=== PATIENT | male | born 1995 | race Caucasian/White ===

== ENCOUNTER → 2019-08-06 09:33 | Outpatient (CLI) | payer OTHER, SELFPAY | PROVIDERS: Visit Provider Physician Assistant | DX: L08.9 Local infection of the skin and subcutaneous tissue, unspecified (principal) | CPT/HCPCS: 87070; 87077; 87147; 87186; 87205 ==

== ENCOUNTER 2019-08-20 16:57 | Emergency (ER) | payer OTHER, SELFPAY ==
[2019-08-20 17:15] VITALS: BP 110/69; PULSE 53; RESP 15; TEMP 36.4; O2SAT 100; BMI 19.8
--- NOTE | 2019-08-20 19:32 | PC.NURSE ---
reports being seen in walking clinic today abnd started on abx. Pt noticed tacho area spreading and came into ER. denies all other complaints.
[2019-08-20 19:34] VITALS: BP 108/81; PULSE 58; RESP 15; O2SAT 100
--- NOTE | 2019-08-20 22:23 | ED.SKABFB ---
HPI - Skin/Abscess/Foreign Bdy <CLEVELAND Goodwin - Last Filed: 08/20/19 23:12> General Chief complaint: Skin/Abscess/Foreign Body Stated complaint: infection right arm, increased pain after antibiot Time Seen by Provider: 08/20/19 18:57 Source: patient Mode of arrival: Ambulatory Limitations: no limitations History of Present Illness HPI narrative: This is 24-year-old gentleman, smoker, who presents with significant other with chief complain of right upper arm pain, swelling, redness. Patient reports headache, low energy but denies fever/chills, nausea or vomiting. Patient reports it started as a small pimple and he tried to pop this and had small amount of drainage. Patient reports pain was severe on the way to ER and felt like he was going to pass out. Patient was seen at [facility] today and prescribed with doxycycline for cellulitis and had a 1st dose prior coming into ED at 11:00 a.m. patient reports he was concerned since the redness, swelling, pain has increased within several hours. Patient had recently treated with doxycycline for MRSA infection on right upper arm 08/06/2019. Patient reports after the initial course of antibiotic medication, the right upper arm infection had improved. The patient also reports had bitten by his dog the other day and there are 2 superficial puncture wound which do not appears to be having redness, swelling, warmth, or drainage immediately inferior to today's cellulitis site which is lined with skin marker. Patient denies history of immunosuppressed, diabetes, or IV drug use. Related Data Previous Rx's Medication Instructions Recorded doxycycline monohydrate 100 mg 100 mg PO BID 7 Days #14 cap 08/20/19 capsule mupirocin 2 % topical ointment 1 applic TOP TID #30 gram 08/20/19 Allergies Allergy/AdvReac Type Severity Reaction Status Date / Time Sulfa (Sulfonamide Allergy Mild Unverified 08/20/19 08:20 Antibiotics) [SULFA (SULFONAMIDE ANTIBIOTICS)] codeine [CODEINE] Allergy Unknown Unverified 08/20/19 08:20 Review of Systems <CLEVELAND Goodwin - Last Filed: 08/20/19 23:12> Review of Systems ROS Unobtainable: All systems reviewed & are unremarkable except as noted in HPI and below PFSH <CLEVELAND Goodwin - Last Filed: 08/20/19 23:12> Social History Smoking Status: Current every day smoker Social History Smoking Status: Current every day smoker Exam <CLEVELAND Goodwin - Last Filed: 08/20/19 23:12> Narrative Exam Narrative: General appearance: well developed, well nourished, in no acute distress. Head: normocephalic, atraumatic, no scalp lesions, non-tender. Eye: pupil equal, round. EOMI. Nose: nares patent. Oral: mucosa moist. Neck/Thyroid: neck supple, full range of motion, no visible masses. Skin: Right upper arm with mild erythema, indurated edema without soft spot to palpate, warmth and reports tender to palpate and noticed open punctures sites. no suspicious rashes, lesions over other visible areas. Warm and dry. Heart: no clubbing, no cyanosis, no edema. Lungs: Breathing even and unlabored. No stridor. No accessory muscles used. Chest: normal shape and expansion. Abdomen: non-obese, non-distended. Neurologic: alert and oriented. 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 Psych: good eye contact, normal affect. Initial Vital Signs Initial Vital Signs: Vital Signs Temperature 97.6 F 08/20/19 17:15 Pulse Rate 53 L 08/20/19 17:15 Respiratory Rate 15 08/20/19 17:15 Blood Pressure 110/69 08/20/19 17:15 Pulse Oximetry 100 08/20/19 17:15 <Anatoly Cervantes DO - Last Filed: 08/20/19 23:26> Initial Vital Signs Initial Vital Signs: Vital Signs Temperature 97.6 F 08/20/19 17:15 Pulse Rate 53 L 08/20/19 17:15 Respiratory Rate 15 08/20/19 17:15 Blood Pressure 110/69 08/20/19 17:15 Pulse Oximetry 100 08/20/19 17:15 Course <CLEVELAND Goodwin - Last Filed: 08/20/19 23:12> Vital Signs Vital signs: Vital Signs - 8 hr 08/20/19 17:15 08/20/19 19:34 Temperature 97.6 F Pulse Rate 53 L 58 L Respiratory Rate 15 15 Blood Pressure 110/69 108/81 Pulse Oximetry 100 100 <Anatoly Cervantes DO - Last Filed: 08/20/19 23:26> Vital Signs Vital signs: Vital Signs - 8 hr 08/20/19 17:15 08/20/19 19:34 Temperature 97.6 F Pulse Rate 53 L 58 L Respiratory Rate 15 15 Blood Pressure 110/69 108/81 Pulse Oximetry 100 100 MDM - Skin/Abscess/Foreign Bdy <CLEVELAND Goodwin - Last Filed: 08/20/19 23:12> Differential Diagnosis Differential diagnosis: Likely abscess of skin or subcutaneous tissue and cellulitis Medical Records Attestation: I reviewed the patient's medical records. [facility] Narrative Medical decision making narrative: This is 24-year-old male who presents to ED with right upper arm cellulitis. The area has induration, mild warmth and redness without discharge. Patient is afebrile with normal blood pressure and no tachycardia. Patient only had taken 1 dose of doxycycline at 11:00 a.m. today after visiting walk-in clinic and also discharged to home with mupirocin ointment. The site has been drawn with skin marker and advised to use warm pack frequently on affected site to promote healing and take medication twice a day for 7 day course as prescribed and limit right arm use. Return precautions were discussed with the patient and advised return to ED if worsening redness, swelling, fever, chills, pain, feeling fainting after a couple of additional dose of doxycycline. Patient advised to use [id number] Tylenol and/or Motrin as needed for discomfort and mild fever. Patient verbalized the understanding and no further questions expressed at this time and agrees with treatment plan. Patient does not have PCP and information to [facility] resources and walk-in clinic provided. Discharge Plan Departure Patient Disposition: Home Clinical Impression: MRSA cellulitis Discharge Date/Time: 08/20/19 19:35 Instructions: DI for Cellulitis -- Child Activity Restrictions/Additional Instructions: You have been diagnosed with [cellulitis on right upper arm possibly MRSA infection]. What to do: *Take your medications as directed. Please continue take doxycycline for next 10 days. Use mupirocin antibiotic medication ointment on affected site 3 times a day as instructed. Use warm pack on affected site to promote healing. You can also take [id number] Tylenol and/or Motrin as needed for fever and pain. *Follow up with your primary care provider/Walk in clinic in 2-3 days, call for an appointment. Let them know you were seen in the ED and that we asked you to be seen in follow up. *Return to ED if you have any new, worsening, or concerning symptoms, such as [worsening pain, increasing redness beyond marked line after 2-3 doses of antibiotic medication, fever, tingling numbness to right arm, joint pain, chest pain, breathing difficulty, unable to tolerate fluids or medications, fainting, any acute concerns]. Prescriptions: No Action doxycycline monohydrate 100 mg capsule 100 mg PO BID 7 Days Qty: 14 RF: 0 mupirocin 2 % ointment 1 applic TOP TID Qty: 30 RF: 0 Referrals: [facility] [Outside] ([id number] ) [facility] [Outside] <Anatoly Cervantes, - Last Filed: 08/20/19 23:26> Sign Out Provider Sign Out Attestation: I was available for consultation during this patient's emergency department encounter
== END 2019-08-20 19:35 | disposition home or self-care (01) ==
PROVIDERS: Emergency Provider Nurse Practitioner Family
DX: L03.113 Cellulitis of right upper limb (principal); A49.02 Methicillin resistant Staphylococcus aureus infection, unspecified site
CPT/HCPCS: 99282

== ENCOUNTER 2019-11-24 18:48 | Emergency (ER) | payer OTHER, SELFPAY ==
[2019-11-24 18:53] VITALS: BP 145/79; PULSE 70; RESP 18; TEMP 36.9; O2SAT 98
[2019-11-24] MEDS: TET,DIPH,PERTUSS(ACELL),VAC/PF 0.5 ML SYRINGE IM (18:58)
--- NOTE | 2019-11-24 19:02 | ED.WOUNDLAC ---
HPI - Wound/Laceration <BEE Lagos - Last Filed: 11/24/19 20:13> General Chief Complaint: Wound/Laceration Stated Complaint: laceration to left hand thumb last night Time Seen by Provider: 11/24/19 18:49 Source: patient Mode of arrival: Ambulatory Limitations: no limitations History of Present Illness HPI narrative: The patient is a 24-year-old male current smoker with history of abdominal pain and abscess who presents with a chief complaint of laceration to his left hand thumb. He states that this happened yesterday. It was with a knife while he was intoxicated. He denies any decreased range of motion. He has not cleaned out he does not know when his last tetanus was. Related Data Previous Rx's Medication Instructions Recorded mupirocin 2 % topical ointment 1 applic TOP TID #30 gram 08/20/19 Allergies Allergy/AdvReac Type Severity Reaction Status Date / Time Sulfa (Sulfonamide Allergy Mild Verified 08/21/19 15:04 Antibiotics) [SULFA (SULFONAMIDE ANTIBIOTICS)] codeine [CODEINE] Allergy Unknown Verified 08/21/19 15:04 Review of Systems <JENN Lagos - Last Filed: 11/24/19 20:13> Review of Systems Narrative: GENERAL: Denies chills, fatigue, malaise, fever, sweats. HEENT: Denies sinus pain, ear pain, sore throat, difficulty swallowing, dizziness. RESPIRATORY: Denies dyspnea, cough, wheezing, hemoptysis, sputum. CARDIOVASCULAR: Denies chest pain, palpitations, orthopnea, edema, GASTROINTESTINAL: Denies nausea, vomiting, abdominal pain, diarrhea, constipation, melena. : Denies dysuria, frequency, incontinence, hematuria, urinary retention. MUSCULOSKELETAL: denies weakness, joint pain, or bony pain SKIN: See HPI NEUROLOGIC: Denies weakness, headache, numbness, change in speech, confusion, seizures, incoordination. PSYCHIATRIC: No concerning psychosocial issues. 12 point review of systems is negative except for those stated above Patient History <JENN Lagos - Last Filed: 11/24/19 20:13> Social History Smoking Status: Current every day smoker Smoking Status: Current every day smoker alcohol intake frequency: 3 or more drinks per day Substance Use Type: marijuana Exam <BEE Lagos - Last Filed: 11/24/19 20:13> Narrative Exam Narrative: GENERAL: This is a well-nourished, well-developed patient, in mild distress. HEAD: Atraumatic. Normocephalic. No temporal or scalp tenderness. EYES: Pupils equal round and reactive. Extraocular motions intact. No scleral icterus. No injection or drainage. ENT: Nose without bleeding, purulent drainage or septal hematoma. Throat without erythema, tonsillar hypertrophy or exudate. Uvula midline. Airway patent. NECK: Trachea midline. No JVD or lymphadenopathy. Supple, nontender, no meningeal signs. CARDIOVASCULAR: Regular rate and rhythm RESPIRATORY: No cough. No increased respiratory effort. No accessory muscle use. EXTREMITIES: Skin exam is noted. Able to flex and extend left thumb against resistance. BACK: Nontender without deformity or crepitance. No flank tenderness. NEURO: AOx3. SKIN: 2.5 cm linear laceration noted distal phalanx of left 1st digit on palmar side. No obvious muscle or tendon involvement. Through dermis. Macerated tissue. No erythema or drainage noted. Initial Vital Signs Initial Vital Signs: Vital Signs Temperature 98.5 F 11/24/19 18:53 Pulse Rate 70 11/24/19 18:53 Respiratory Rate 18 11/24/19 18:53 Blood Pressure 145/79 H 11/24/19 18:53 Pulse Oximetry 98 11/24/19 18:53 <Otilio Cornejo DO - Last Filed: 11/24/19 23:39> Initial Vital Signs Initial Vital Signs: Vital Signs Temperature 98.5 F 11/24/19 18:53 Pulse Rate 70 11/24/19 18:53 Respiratory Rate 18 11/24/19 18:53 Blood Pressure 145/79 H 11/24/19 18:53 Pulse Oximetry 98 11/24/19 18:53 Course <BEE Lagos - Last Filed: 11/24/19 20:13> Orders Ordered: Discontinued Medications Diphtheria/Tetanus/Acell Pertussis (Adacel) 0.5 ml IM .ONCE ONE Stop: 11/24/19 18:55 Last Admin: 11/24/19 18:58 Dose: 0.5 ml Documented by: RUBIA Vital Signs Vital signs: Vital Signs - 8 hr 11/24/19 18:53 11/24/19 19:50 Temperature 98.5 F Pulse Rate 70 72 Respiratory Rate 18 16 Blood Pressure 145/79 H Pulse Oximetry 98 98 <Otilio Cornejo DO - Last Filed: 11/24/19 23:39> Orders Ordered: Discontinued Medications Diphtheria/Tetanus/Acell Pertussis (Adacel) 0.5 ml IM .ONCE ONE Stop: 11/24/19 18:55 Last Admin: 11/24/19 18:58 Dose: 0.5 ml Documented by: RUBIA Vital Signs Vital signs: Vital Signs - 8 hr 11/24/19 18:53 11/24/19 19:50 Temperature 98.5 F Pulse Rate 70 72 Respiratory Rate 18 16 Blood Pressure 145/79 H Pulse Oximetry 98 98 MDM - Wound/Laceration <JENN LagosBC - Last Filed: 11/24/19 20:13> MDM Narrative Medical decision making narrative: The patient is a 24-year-old male who presents with a chief complaint of a laceration to his left thumb. His wound is too old to close by suturing. Was cleansed in the emergency department with Hibiclens. His tetanus was updated. Wound care was provided by nursing. Discussed at length monitoring for signs and symptoms of infection such as redness swelling and pus. Discussed at length follow up care and encouraged follow-up with primary care provider. Discussed coming back to ER for acute concerns. Patient has no questions or concerns upon discharge and states understanding of return precautions as well as follow-up care. Discharge Plan Departure Patient Disposition: Home Clinical Impression: Laceration Discharge Date/Time: 11/24/19 19:58 Instructions: DI for Minor Laceration Activity Restrictions/Additional Instructions: Today we updated your tetanus Unfortunately your wound is too old to suture. Please do not use knives while intoxicated. Please watch for signs and symptoms of infection such as Redness swelling and pus. I've given you contact information at [facility] administrative resources associate. They can help you identify primary care provider. Please keep your wound clean and dry. Do not submerge it into dirty water as this increases her chance of infection. Prescriptions: No Action mupirocin 2 % ointment 1 applic TOP TID Qty: 30 RF: 0 Referrals: [facility] [Outside] Stand Alone Forms: Work Release Note
[2019-11-24 19:50] VITALS: PULSE 72; RESP 16; O2SAT 98
== END 2019-11-24 19:58 | disposition home or self-care (01) ==
PROVIDERS: Emergency Provider Nurse Practitioner Family
DX: S61.012A Laceration without foreign body of left thumb without damage to nail, initial encounter (principal); W26.0XXA Contact with knife, initial encounter
CPT/HCPCS: 90471; 99281; 99283; 90715

== ENCOUNTER → 2020-02-10 10:25 | Outpatient (CLI) | payer OTHER, SELFPAY ==
[2020-02-10 11:39] LABS: Influenza A - CEPHEID Flu A NEGATIVE (NEGATIVE); Influenza B - CEPHEID Flu B POSITIVE (NEGATIVE)
== END ==
PROVIDERS: Visit Provider Nurse Practitioner
DX: R68.89 Other general symptoms and signs (principal)
CPT/HCPCS: 87502

== ENCOUNTER 2020-05-17 07:51 | Emergency (ER) | payer OTHER, SELFPAY ==
[2020-05-17 08:05] VITALS: BP 99/72; PULSE 64; RESP 14; TEMP 36.6; O2SAT 100
--- NOTE | 2020-05-17 08:13 | DI.RAD.S_ITS ---
PROCEDURE: XR WRIST LT MIN 3V INDICATIONS: fall w/ pain volar wrist TECHNIQUE: 4 views of the wrist were acquired. COMPARISON: None. FINDINGS: Bones: No fractures or dislocations identified. No suspicious bony lesions. Scaphoid view: Unremarkable. Soft tissues: No suspicious soft tissue calcifications. IMPRESSION: No acute osseous abnormality. Consider followup radiographs in 7-10 days. Dictated by: Hunter Davila M.D. on 05/17/2020 at 8:44 Approved by: Hunter Davila M.D. on 05/17/2020 at 8:45
[2020-05-17 08:21] VITALS: PULSE 80
--- NOTE | 2020-05-17 08:42 | ED_ITS ---
HPI - General Adult General Chief complaint: Extremity Injury, Upper Stated complaint: lt wrist fell at work Time Seen by Provider: 05/17/20 08:36 Source: patient Mode of arrival: Ambulatory Limitations: no limitations History of Present Illness HPI narrative: 24-year-old male here for evaluation of left wrist injury. He states that yesterday he was at work. He states that he stepped on a metal flynn that had oil on it and it was also wet from the rain. He states that he slipped and fell landing on his left wrist. Unsure exactly how he landed on his wrist. Has bruising on his wrist and pain. Has a wrist splint that he had at home that he placed on his wrist for the discomfort. No prior injuries. Related Data Home Medications Medication Instructions Recorded Confirmed naproxen sodium [Aleve] 220 mg PO Q12H PRN 05/17/20 05/17/20 Allergies Allergy/AdvReac Type Severity Reaction Status Date / Time Sulfa (Sulfonamide Allergy Mild Verified 05/17/20 08:10 Antibiotics) [SULFA (SULFONAMIDE ANTIBIOTICS)] codeine [CODEINE] Allergy Unknown Verified 05/17/20 08:10 Review of Systems Constitutional Constitutional: Denies headache(s) ENT Ears, Nose, Mouth, and Throat: Denies headache(s) Musculoskeletal Comments: Left wrist pain Integumentary/Breasts Comments: Bruising to the left wrist Neurologic Neurologic: Denies headache(s) Comments: Tingling in his left arm Hematologic/Lymphatic Hematologic/Lymphatic: Denies easy bleeding and Denies easy bruising Patient History Medical History Abscess (Inactive) Social History Smoking Status: Current every day smoker Smoking Status: Current every day smoker alcohol intake frequency: 0-2 drinks per day Substance Use Type: marijuana Exam Initial Vital Signs Initial Vital Signs: Vital Signs Temperature 97.8 F 05/17/20 08:05 Pulse Rate 64 05/17/20 08:05 Respiratory Rate 14 05/17/20 08:05 Blood Pressure 99/72 05/17/20 08:05 Pulse Oximetry 100 05/17/20 08:05 Const General: cooperative and comfortable Limitations: mental status not altered Cardio Pulses: radial pulses present on the left Skin Other: 2 cm round bruise on the ulnar aspect of the volar portion of the left wrist just proximal to the joint. Neuro Sensory Exam: no sensory deficits noted Extrem Other: Left shoulder left elbow unremarkable. Patient can pronate and supinate without pain. Does have most of his discomfort with flexion however can extend his left wrist. Left hand and fingers unremarkable Course Orders Ordered: ED Orders 05/17/20 08:13 XR wrist LT min 3V Stat Vital Signs Vital signs: Vital Signs - 8 hr 05/17/20 08:05 05/17/20 08:21 Temperature 97.8 F Pulse Rate 64 Pulse Rate [Left Radial] 80 Respiratory Rate 14 Blood Pressure 99/72 Pulse Oximetry 100 Medical Decision Making Imaging Data Extremity x-ray #1: Radiologist's Impression: [address] [address] XRay Report Signed Patient: Anatoly Yadav [facility]#: [id number] : 1995Acct:[id number] Age/Sex: 24 / MDate of Service: 05/17/20 Loc: ED Accession Number: [id number] Procedure: XR wrist LT min 3V Ordering Provider: Anatoly Cervantes D.O. PROCEDURE: XR WRIST LT MIN 3V INDICATIONS: fall w/ pain volar wrist TECHNIQUE: 4 views of the wrist were acquired. COMPARISON: None. FINDINGS: Bones: No fractures or dislocations identified. No suspicious bony lesions. Scaphoid view: Unremarkable. Soft tissues: No suspicious soft tissue calcifications. IMPRESSION: No acute osseous abnormality. Consider followup radiographs in 7-10 days. Dictated by: Hunter Davila M.D. on 05/17/2020 at 8:44 Approved by: Hunter Davila M.D. on 05/17/2020 at 8:[address] [facility] Narrative Medical decision making narrative: Patient is neurovascularly intact. X-ray showed no signs of fracture. He already has a wrist splint that he can use as needed. He was filling out L and I paperwork. No indication for further workup here in the ER. He was given return precautions and follow-up instructions. Discharge Plan Departure Patient Disposition: Home Clinical Impression: Injury of left wrist Qualifiers: Encounter type: initial encounter Qualified Code(s): S69.92XA - Unspecified injury of left wrist, hand and finger(s), initial encounter Contusion of left wrist Qualifiers: Encounter type: initial encounter Qualified Code(s): S60.212A - Contusion of left wrist, initial encounter Instructions: How To Perform RICE (Rest, Ice, Compress, Elevate) Activity Restrictions/Additional Instructions: You can wear the wrist splint as needed. You can take it off to shower and wash your hands. You have no restrictions on your activities. Return to the emergency department for any new or worsening symptoms Prescriptions: No Action naproxen sodium [Aleve] 220 mg Capsule 220 mg PO Q12H PRN (Reason: Pain (Scale Score 4-6)) RF: 0 Stand Alone Forms: Work Release Note
[2020-05-17 09:07] VITALS: PULSE 80; RESP 16; O2SAT 98
== END 2020-05-17 09:07 | disposition home or self-care (01) ==
PROVIDERS: Emergency Provider Emergency Medicine
DX: S69.92XA Unspecified injury of left wrist, hand and finger(s), initial encounter (principal); S60.212A Contusion of left wrist, initial encounter; W19.XXXA Unspecified fall, initial encounter
CPT/HCPCS: 73110; 99283

== ENCOUNTER 2021-04-11 16:07 | Emergency (ER) | payer OTHER, SELFPAY ==
[2021-04-11 16:11] VITALS: BP 139/83; PULSE 72; RESP 16; TEMP 36.6; O2SAT 100
--- NOTE | 2021-04-11 16:18 | ED.RECABL ---
HPI - Recheck/Abnormal Lab/Rx <Amber Hines MD - Last Filed: 04/11/21 17:23> General Chief Complaint: Recheck/Abnormal Lab/Rx Stated Complaint: Back pain Time Seen by Provider: 04/11/21 16:13 History of Present Illness HPI narrative: 25-year-old gentleman with continued back pain after initial injury at work with an L&I claim open on December 12 through the walk-in clinic. He is describing low back pain and spasm again initially starting in December after doing some lifting at work. We had initially been seeing a chiropractor and found that the initial visit the been helpful however with COVID, exposures in quarantine [place] and additional complications was not able to reschedule. He does not have a primary care provider and he is unsure how to reopen his claim to go back to chiropractic visits. In the meantime his low back spasm is now moved up to the mid and upper back with paraspinous spasm from the iliac crests to the midscapular region. He states that sometimes the pain and spasm is significant enough that he has some difficulty breathing. No fevers, cough, chills, vomiting, diarrhea. No history of IV drug use no specific interval trauma since the initial injury in December. Initial prescription had been for Naprosyn and cyclobenzaprine he found the cyclobenzaprine helped a bit with sleep but is unsure that it made much difference with spasm. He prefers to avoid medications if at all possible. Related Data Home Medications Medication Instructions Recorded Confirmed naproxen sodium [Aleve] 220 mg PO Q12H PRN 05/17/20 12/12/20 Previous Rx's Medication Instructions Recorded cyclobenzaprine 10 mg tablet 10 mg PO BID #20 tab 12/12/20 Allergies Allergy/AdvReac Type Severity Reaction Status Date / Time Sulfa (Sulfonamide Allergy Mild Verified 12/12/20 11:08 Antibiotics) [SULFA (SULFONAMIDE ANTIBIOTICS)] codeine [CODEINE] Allergy Unknown Verified 12/12/20 11:08 <Otilio Cornejo DO - Last Filed: 04/11/21 19:16> General Source: patient Mode of arrival: Ambulatory Review of Systems <Amber Hines MD - Last Filed: 04/11/21 17:23> Review of Systems Narrative: Remainder of complete review of systems is otherwise unremarkable except for that included in the HPI. Patient History <Amber Hines MD - Last Filed: 04/11/21 17:23> Medical History Abscess Back strain Social History Smoking Status: Current every day smoker <Otilio Cornejo DO - Last Filed: 04/11/21 19:16> Smoking Status: Current every day smoker alcohol intake frequency: 0-2 drinks per day Substance Use Type: marijuana Exam <Amber Hines MD - Last Filed: 04/11/21 17:23> Narrative Exam Narrative: General: Alert appropriate in mild distress. Stiff with moving from a sitting to a standing position but able to do so Respiratory: Able to speak in full sentences, no obvious respiratory distress Skin: No obvious rashes, warm and dry Spine: No point tenderness along the thoracic or lumbar spine. He does have significant rhomboid tenderness mid scapula and paraspinous spasm down to the lumbar spine with significant spasm appreciated from and the T12-L3 region. He does not have any radicular pain. There are no skin changes or findings. Neurologic: Grossly intact no obvious asymmetries or abnormalities Psych: appropriate insight and affect, cooperative Initial Vital Signs Initial Vital Signs: Vital Signs Temperature 97.9 F 04/11/21 16:11 Pulse Rate 72 04/11/21 16:11 Respiratory Rate 16 04/11/21 16:11 Blood Pressure 139/83 04/11/21 16:11 Pulse Oximetry 100 04/11/21 16:11 <Otilio Cornejo DO - Last Filed: 04/11/21 19:16> Initial Vital Signs Initial Vital Signs: Vital Signs Temperature 97.9 F 04/11/21 16:11 Pulse Rate 72 04/11/21 16:11 Respiratory Rate 16 04/11/21 16:11 Blood Pressure 139/83 04/11/21 16:11 Pulse Oximetry 100 04/11/21 16:11 Course <Amber Hines MD - Last Filed: 04/11/21 17:23> Orders Ordered: Discontinued Medications Acetaminophen (Acetaminophen 325 Mg Tablet) 325 mg PO NOW ONE Stop: 04/11/21 17:10 Last Admin: 04/11/21 17:20 Dose: 325 mg Documented by: HIRAL Ibuprofen (Ibuprofen 400 Mg Tablet) 400 mg PO NOW ONE Stop: 04/11/21 17:10 Last Admin: 04/11/21 17:20 Dose: 400 mg Documented by: HIRAL Vital Signs Vital signs: Vital Signs - 8 hr 04/11/21 16:11 Temperature 97.9 F Pulse Rate 72 Respiratory Rate 16 Blood Pressure 139/83 Pulse Oximetry 100 <Otilio Cornejo DO - Last Filed: 04/11/21 19:16> Course Course Narrative: i had accidentally opened chart, but did not actually see the patient Orders Ordered: Discontinued Medications Acetaminophen (Acetaminophen 325 Mg Tablet) 325 mg PO NOW ONE Stop: 04/11/21 17:10 Last Admin: 04/11/21 17:20 Dose: 325 mg Documented by: HIRAL Ibuprofen (Ibuprofen 400 Mg Tablet) 400 mg PO NOW ONE Stop: 04/11/21 17:10 Last Admin: 04/11/21 17:20 Dose: 400 mg Documented by: HIRAL Vital Signs Vital signs: Vital Signs - 8 hr 04/11/21 16:11 Temperature 97.9 F Pulse Rate 72 Respiratory Rate 16 Blood Pressure 139/83 Pulse Oximetry 100 MDM - Recheck/Abnormal Lab/Rx <Amber Hines MD - Last Filed: 04/11/21 17:23> [facility] Narrative Medical decision making narrative: 25-year-old gentleman with low and middle back strain with muscle spasm. No red flags indicate imaging would be required or appropriate at this time. I believe healthcare marketer would certainly help and is entirely appropriate. Will recommend ibuprofen Tylenol and again a prescription for cyclobenzaprine at night to help with sleep and spasm. Will give him a written prescription for healthcare marketer and refer him to [facility] business office regarding the reopening of his L&I claim. He is safe for home discharge Discharge Plan Departure Patient Disposition: Home Clinical Impression: Back strain Qualifiers: Encounter type: initial encounter Qualified Code(s): S39.012A - Strain of muscle, fascia and tendon of lower back, initial encounter Instructions: DI for Back Strain or Sprain Activity Restrictions/Additional Instructions: [phone] is a phone number for [facility] insurance billing office. Please contact them during regular working hours to discuss reopening her L&I claim. In the meantime, using 400 mg of ibuprofen (2 [id number] pills) and 1 Tylenol every 6 hours can be very helpful in controlling pain. Using cyclobenzaprine 10 mg at bedtime can help with sleep and muscle spasms so that your body can continue to work and heal itself. I have given you a written prescription for healthcare marketer and do think that it would be a benefit for you. I wish you the best Prescriptions: No Action cyclobenzaprine 10 mg tablet 10 mg PO BID Qty: 20 RF: 0 naproxen sodium [Aleve] 220 mg Capsule 220 mg PO Q12H PRN (Reason: Pain (Scale Score 4-6)) RF: 0
[2021-04-11] MEDS: ACETAMINOPHEN 325 MG TABLET PO (17:20)
[2021-04-11] MEDS: IBUPROFEN 400 MG TABLET PO (17:20)
== END 2021-04-11 17:25 | disposition home or self-care (01) ==
PROVIDERS: Emergency Provider Emergency Medicine
DX: S39.012A Strain of muscle, fascia and tendon of lower back, initial encounter (principal); X50.9XXA Other and unspecified overexertion or strenuous movements or postures, initial encounter; Y99.0 Civilian activity done for income or pay
CPT/HCPCS: 99282; 99283

== ENCOUNTER 2024-02-25 13:34 | Emergency (ER) | payer OTHER, SELFPAY ==
[2024-02-25 13:45] VITALS: BP 138/90; PULSE 57; RESP 14; TEMP 36.7; O2SAT 99; BMI 21.5
--- NOTE | 2024-02-25 14:39 | DI.CT.S_ITS ---
PROCEDURE: CT ABDOMEN PELVIS W CON INDICATIONS: RLQ ABD PAIN TECHNIQUE: After the administration of intravenous contrast, axial sections acquired from the lung bases to the pubic symphysis. Coronal and sagittal reformats were performed. For radiation dose reduction, the following was used: automated exposure control, adjustment of mA and/or kV according to patient size. COMPARISON: None. FINDINGS: Image quality: Diagnostic. Lower Chest: No significant findings. ABDOMEN: Liver: No solid mass. Gallbladder: No radiopaque gallstones or wall thickening. Biliary ducts: No biliary dilation. Pancreas: No ductal dilation. Spleen: Size is within normal limits. Adrenal Glands: No adrenal nodules. Kidneys and Ureters: No hydronephrosis. No solid mass. No complex renal cystic lesion which requires follow up. Stomach and Bowel: Normal colonic caliber, without significant wall thickening. Sigmoid diverticulosis without evidence of diverticulitis. Normal air containing appendix. Peritoneum: No abnormal intraperitoneal fluid. No free air. Ventral Wall: No significant ventral hernia. Abdominal Nodes: No retroperitoneal or mesenteric adenopathy by size criteria. Vessels: Aorta and inferior vena cava are normal in size. PELVIS: Pelvic Organs: Unremarkable. Bladder: No bladder wall thickening, accounting for underdistention. Pelvic Nodes: No enlarged lymph nodes. Miscellaneous: No inguinal hernias are seen. Bones: No aggressive osseous abnormality. IMPRESSION: 1. No acute abdominal process. 2. Normal appendix. 3. No findings which explain right lower quadrant pain. 4. Mild sigmoid diverticulosis. Dictated by: Kings Harkins M.D. on 02/25/2024 at 15:26 Approved by: Kings Harkins M.D. on 02/25/2024 at 15:37
[2024-02-25] MEDS: MORPHINE 4 MG/ML INJ IV (14:43)
[2024-02-25] MEDS: ONDANSETRON 4 MG/2 ML INJ IV (14:43)
[2024-02-25 14:54] LABS: Add Manual Diff / Slide Review NO; Basophils Absolute Auto 0 /uL (0-100); Basophils Percent Auto 0.4 % (0-2); Eosinophils Absolute Auto 100 /uL (0-450); Eosinophils Percent Auto 1.4 % (2-4); Hematocrit 45.7 % (41-53); Hemoglobin 15.8 g/dL (13.5-17.5); Lymphocytes Absolute Auto 1700 /uL (1100-4500); Lymphocytes Percent Auto 27.3 % (25-40); Mean Corpuscular HGB Conc 34.6 % (30-36); Mean Corpuscular Hemoglobin 30.7 PG (26-34); Mean Corpuscular Volume 88.8 fL (80-100); Monocytes Absolute Auto 500 /uL (0-900); Monocytes Percent Auto 7.4 % (3-14); Neutrophils Absolute Auto 3900 /uL (1500-7000); Neutrophils Percent Auto 63.5 % (50-75); Platelet Count 209 X10^3/uL (150-400); Red Blood Cell Count 5.14 X10^6/uL (4.5-5.9); Red Cell Distribution Width 13.3 % (11.6-14.8); White Blood Cell Count 6.1 X10^3/uL (4.5-11.0)
[2024-02-25 15:08] LABS: Alanine Aminotransferase 29 IU/L (<50); Albumin 4.5 g/dL (3.5-5.0); Albumin Globulin Ratio 1.8 (1.0-2.8); Alkaline Phosphatase 55 U/L (38-126); Aspartate Aminotransferase 35 IU/L (17-59); BUN Creatinine Ratio 15.3 (6-22); Bilirubin Total 0.7 mg/dL (0.2-1.3); Blood Urea Nitrogen 11 mg/dL (9-20); Calcium 9.4 mg/dL (8.4-10.2); Carbon Dioxide 26 mmol/L (22-32); Chloride 106 mmol/L (98-107); Estimated Glomerular Filt Rate > 60 mL/min (>60); Globulin 2.5 g/dL (1.7-4.1); Glucose 92 mg/dL (70-100); HEMOLYSIS 20 (0-50); Lipase 66 U/L (23-300); Potassium 3.8 mmol/L (3.4-5.1); Sodium 138 mmol/L (137-145)
--- NOTE | 2024-02-25 15:42 | ED.ABDPAIN ---
HPI - Abdominal Pain General Chief Complaint: Abdominal Pain Stated Complaint: LRQ Abd Pain Time Seen by Provider: 02/25/24 14:29 Source: patient Mode of arrival: Ambulatory History of Present Illness HPI narrative: 28-year-old male with no reported past medical history presents for right lower quadrant abdominal pain. Patient states that he was had periumbilical abdominal pain for several weeks, however most recently it has migrated to the right lower quadrant. Reports nausea. Denies vomiting, constipation, diarrhea Related Data Previous Rx's Medication Instructions Recorded dicyclomine 20 mg tablet 20 mg PO QID #60 tabs 02/25/24 Allergies Allergy/AdvReac Type Severity Reaction Status Date / Time Sulfa (Sulfonamide Allergy Mild Verified 02/25/24 14:03 Antibiotics) [SULFA (SULFONAMIDE ANTIBIOTICS)] codeine [CODEINE] Allergy Unknown Verified 02/25/24 14:03 Review of Systems Review of Systems Narrative: Negative except as noted above Patient History Medical History Abscess Acne Asthma Back strain MRSA (methicillin resistant Staphylococcus aureus) (~2019) Muscle spasm Surgical History Anesthesia History of tonsillectomy Family History Grandmother Cancer Grandfather Cancer Grandmother Cancer Social History Smoking Status: Current every day smoker Smoking Status: Current every day smoker tobacco type: vaping alcohol intake frequency: 3 or more drinks per day Substance Use Type: marijuana Exam Initial Vital Signs Initial Vital Signs: Vital Signs Temperature 98.1 F 02/25/24 13:45 Pulse Rate 57 L 02/25/24 13:45 Respiratory Rate 14 02/25/24 13:45 Blood Pressure 138/90 02/25/24 13:45 Pulse Oximetry 99 02/25/24 13:45 Oxygen Delivery Method Room Air 02/25/24 13:45 Const: Awake, alert, no acute distress, nontoxic appearing Cardiac: regular rate, regular rhythm RESP: unlabored, clear bilaterally, no wheezing GI: Soft, generalized tenderness to deep palpation without rebound or guarding MSK: Atraumatic, full range of motion, pulses equal Skin: Warm, Dry, intact, no rashes Neuro: AO x3, CN II-XII grossly intact, moves all extremities Course Orders Ordered: Discontinued Medications Morphine Sulfate (Morphine 4 Mg/Ml Inj) 4 mg IV NOW ONE Stop: 02/25/24 14:04 Last Admin: 02/25/24 14:43 Dose: 4 mg Documented By: KARLENE Ondansetron HCl (Ondansetron 4 Mg/2 Ml Inj) 4 mg IV NOW PRN PRN Reason: Nausea And Vomiting Last Admin: 02/25/24 14:43 Dose: 4 mg Documented By: KARLENE Ondansetron HCl (Ondansetron 4 Mg Odt) 4 mg PO NOW PRN PRN Reason: Nausea And Vomiting Vital Signs Vital signs: Vital Signs - 8 hr 02/25/24 13:45 02/25/24 16:25 Temperature 98.1 F Pulse Rate 57 L 48 L Respiratory Rate 14 14 Blood Pressure 138/90 139/84 Pulse Oximetry 99 100 Oxygen Delivery Method Room Air Room Air MDM - Abdominal Pain Differential Diagnosis Differential diagnosis: Likely abdominal pain, acute appendicitis and calculus of kidney Lab Data 02/25/24 14:33 02/25/24 14:33 Labs: Lab Results 02/25/24 Range/Units 14:33 WBC 6.1 (4.5-11.0) X10^3/uL RBC 5.14 (4.5-5.9) X10^6/uL Hgb 15.8 (13.5-17.5) g/dL Hct 45.7 (41-53) % MCV 88.8 (80-100) fL MCH 30.7 (26-34) PG MCHC 34.6 (30-36) % RDW 13.3 (11.6-14.8) % Plt Count 209 (150-400) X10^3/uL Neut % (Auto) 63.5 (50-75) % Lymph % (Auto) 27.3 (25-40) % [place] % (Auto) 7.4 (3-14) % Eos % (Auto) 1.4 L (2-4) % Baso % (Auto) 0.4 (0-2) % Neut # (Auto) 3900 (8422-9996) /uL Lymph # (Auto) 1700 (5343-1064) /uL [place] # (Auto) 500 (0-900) /uL Eos # (Auto) 100 (0-450) /uL Baso # (Auto) 0 (0-100) /uL Sodium 138 (137-145) mmol/L Potassium 3.8 (3.4-5.1) mmol/L Chloride 106 (98-107) mmol/L Carbon Dioxide 26 (22-32) mmol/L BUN 11 (9-20) mg/dL Creatinine 0.72 (0.66-1.25) mg/dL Estimated GFR > 60 (>60) mL/min BUN/Creatinine Ratio 15.3 (6-22) Glucose 92 (70-100) mg/dL Calcium 9.4 (8.4-10.2) mg/dL Total Bilirubin 0.7 (0.2-1.3) mg/dL AST 35 (17-59) IU/L ALT 29 (<50) IU/L Alkaline Phosphatase 55 (38-126) U/L Total Protein 7.0 (6.3-8.2) g/dL Albumin 4.5 (3.5-5.0) g/dL Globulin 2.5 (1.7-4.1) g/dL Albumin/Globulin Ratio 1.8 (1.0-2.8) Lipase 66 (23-300) U/L Point of care testing: Urine Dip Bedside Urine Glucose Negative Bedside Urine Bilirubin - Negative Bedside Urine Ketone +/- 5 Urine Specific Romance 1.005 Bedside Urine Occult Blood - Negative Bedside Urine pH 7.5 Bedside Urine Protein - Negative Bedside Urine Urobilinogen - Negative Bedside Urine Nitrite - Negative Bedside Urine Leukocytes - Negative Esterase Imaging Data CT scan - abdomen/pelvis: Radiologist's Impression: PROCEDURE: CT ABDOMEN PELVIS W CON INDICATIONS: RLQ ABD PAIN TECHNIQUE: After the administration of intravenous contrast, axial sections acquired from the lung bases to the pubic symphysis. Coronal and sagittal reformats were performed. For radiation dose reduction, the following was used: automated exposure control, adjustment of mA and/or kV according to patient size. COMPARISON: None. FINDINGS: Image quality: Diagnostic. Lower Chest: No significant findings. ABDOMEN: Liver: No solid mass. Gallbladder: No radiopaque gallstones or wall thickening. Biliary ducts: No biliary dilation. Pancreas: No ductal dilation. Spleen: Size is within normal limits. Adrenal Glands: No adrenal nodules. Kidneys and Ureters: No hydronephrosis. No solid mass. No complex renal cystic lesion which requires follow up. Stomach and Bowel: Normal colonic caliber, without significant wall thickening. Sigmoid diverticulosis without evidence of diverticulitis. Normal air containing appendix. Peritoneum: No abnormal intraperitoneal fluid. No free air. Ventral Wall: No significant ventral hernia. Abdominal Nodes: No retroperitoneal or mesenteric adenopathy by size criteria. Vessels: Aorta and inferior vena cava are normal in size. PELVIS: Pelvic Organs: Unremarkable. Bladder: No bladder wall thickening, accounting for underdistention. Pelvic Nodes: No enlarged lymph nodes. Miscellaneous: No inguinal hernias are seen. Bones: No aggressive osseous abnormality. IMPRESSION: 1. No acute abdominal process. 2. Normal appendix. 3. No findings which explain right lower quadrant pain. 4. Mild sigmoid diverticulosis. Dictated by: Kings Hrakins M.D. on 02/25/2024 at 15:26 Approved by: Kings Harkins M.D. on 02/25/2024 at 15:37 MDM Narrative Medical decision making narrative: Well-appearing patient with right lower quadrant abdominal pain. Abdomen is soft but he was tender. Pain is generalized over the entire abdomen, maybe worse in the right lower quadrant. Laboratory work and CT scan negative for acute findings. Patient advised to follow up with a primary care physician, especially if he continues to experience pain. Discharge Plan Departure Patient Disposition: Home Clinical Impression: Abdominal pain Instructions: DI for Abdominal Pain-Adult Activity Restrictions/Additional Instructions: Your laboratory work and imaging today did not show the cause of your abdominal pain. Your liver, gallbladder, and appendix all look normal today. The Bentyl prescribed is to help with abdominal cramping. If you continue to have pain I recommend following up with the primary care doctor. Prescriptions: New dicyclomine 20 mg tablet 20 mg PO QID Qty: 60 0RF Referrals: Severiano De La Rosa MD [Primary Care Provider] - Stand Alone Forms: Patient Portal/API
[2024-02-25 16:25] VITALS: BP 139/84; PULSE 48; RESP 14; O2SAT 100
== END 2024-02-25 16:43 | disposition home or self-care (01) ==
PROVIDERS: Emergency Provider Emergency Medicine; PCP Family Medicine
DX: R10.31 Right lower quadrant pain (principal); R11.0 Nausea
CPT/HCPCS: 36415; 74177; 80053; 81003; 83690; 85025; 96374; 96375; 99284; J2270; J2405; Q9967

== ENCOUNTER 2025-04-04 21:06 | Emergency (ER) | payer OTHER, SELFPAY ==
[2025-04-04 21:07] VITALS: BP 115/61; PULSE 66; RESP 18; TEMP 36.5; O2SAT 100; BMI 20.1
[2025-04-04 21:28] LABS: Add Manual Diff / Slide Review NO; Basophils Absolute Auto 100 /uL (0-100); Basophils Percent Auto 0.5 % (0-2); Eosinophils Absolute Auto 200 /uL (0-450); Eosinophils Percent Auto 1.7 % (2-4); Hematocrit 46.7 % (41-53); Hemoglobin 16.1 g/dL (13.5-17.5); Lymphocytes Absolute Auto 5200 /uL (1100-4500); Mean Corpuscular HGB Conc 34.5 % (30-36); Mean Corpuscular Hemoglobin 29.9 PG (26-34); Mean Corpuscular Volume 86.8 fL (80-100); Monocytes Absolute Auto 1000 /uL (0-900); Monocytes Percent Auto 8.4 % (3-14); Neutrophils Absolute Auto 5100 /uL (1500-7000); Neutrophils Percent Auto 44.4 % (50-75); Platelet Count 242 X10^3/uL (150-400); Red Blood Cell Count 5.38 X10^6/uL (4.5-5.9); White Blood Cell Count 11.5 X10^3/uL (4.5-11.0)
[2025-04-04 21:32] LABS: Alanine Aminotransferase 29 IU/L (<50); Albumin 5.2 g/dL (3.5-5.0); Albumin Globulin Ratio 2.2 (1.0-2.8); Alkaline Phosphatase 43 U/L (38-126); Aspartate Aminotransferase 33 IU/L (17-59); BUN Creatinine Ratio 10.6 (6-22); Bilirubin Total 0.9 mg/dL (0.2-1.3); Blood Urea Nitrogen 10 mg/dL (9-20); Calcium 9.2 mg/dL (8.4-10.2); Carbon Dioxide 25 mmol/L (22-32); Chloride 100 mmol/L (98-107); Estimated Glomerular Filt Rate > 60 mL/min (>60); Globulin 2.4 g/dL (1.7-4.1); Glucose 102 mg/dL (70-99); Lipase 484 U/L (23-300); Sodium 139 mmol/L (137-145); Total Protein 7.6 g/dL (6.3-8.2)
[2025-04-04 21:37] LABS: HEMOLYSIS 29 (0-50)
[2025-04-04 21:38] LABS: Potassium 2.7 mmol/L (3.4-5.1)
--- NOTE | 2025-04-04 21:38 | EKG_ITS ---
[place] [id number] [place] [id number] Test Date: 2025-04-04 Pat Name: Anatoly Yadav Department: 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
[2025-04-04 22:14] VITALS: PULSE 48; RESP 8; O2SAT 84
[2025-04-04] MEDS: POTASSIUM CHLORIDE 20 MEQ TAB 40 MEQ PO (22:15)
[2025-04-04 22:16] VITALS: BP 106/73; PULSE 54; RESP 19; O2SAT 99
[2025-04-04] MEDS: POTASSIUM CHLORIDE IN WATER 10 MEQ/100 ML PIGGYBACK 100 MEQ IV ×2 (22:16→23:11)
[2025-04-04 22:30] VITALS: BP 108/70; PULSE 48; RESP 32
--- NOTE | 2025-04-04 22:33 | PC.NURSE ---
pt to 11 has been constipated x 4-5 days has been having bowel issues and is scheduled to see a gastro doctor for such tonight had a possible syncopal episode vs sz after trying to have a bm upon arrival to pt is aao x 3 ambulatory to room gait steady
[2025-04-04 23:00] VITALS: BP 111/70; PULSE 44; RESP 30
--- NOTE | 2025-04-04 23:16 | ED.ABDPAIN ---
HPI - Abdominal Pain General Chief Complaint: Syncope Stated Complaint: constipation, syncope Time Seen by Provider: 04/04/25 21:23 Source: patient and EMS Mode of arrival: EMS History of Present Illness HPI narrative: 29-year-old gentleman seen at walk-in clinic on Friday with abdominal pain apparently diagnosed with intussusception given omeprazole in polyethylene glycol since he has not had a bowel movement in 4 days and told to follow up with GI MD next Friday presents via EMS today with continued constipation and left lower quadrant pain. He did vomit once he thinks it was brown colored since he drank some coffee and ate some oatmeal earlier but no diarrhea no blood in the urine. Patient denies back pain chest pain shortness of breath. Other than what is stated 14 point review of system is negative Related Data Previous Rx's Medication Instructions Recorded dicyclomine 20 mg tablet 20 mg PO QID #60 tabs 02/25/24 dicyclomine 20 mg tablet 20 mg PO TID #30 tabs 04/05/25 potassium chloride 20 mEq 20 meq PO BID #8 tabs 04/05/25 tablet,extended release Allergies Allergy/AdvReac Type Severity Reaction Status Date / Time Sulfa (Sulfonamide Allergy Mild Verified 04/04/25 21:07 Antibiotics) [SULFA (SULFONAMIDE ANTIBIOTICS)] codeine [CODEINE] Allergy Unknown Verified 04/04/25 21:07 Review of Systems Review of Systems ROS Unobtainable: All systems reviewed & are unremarkable except as noted in HPI and below Patient History Medical History Abscess Acne Asthma Back strain MRSA (methicillin resistant Staphylococcus aureus) (~2019) Muscle spasm Surgical History Anesthesia History of tonsillectomy Family History Grandmother Cancer Grandfather Cancer Grandmother Cancer Social History Smoking Status: Current every day smoker Smoking Status: Current every day smoker tobacco type: vaping alcohol intake frequency: 3 or more drinks per day Exam Narrative Exam Narrative: GENERAL: [29] year old patient appears stated age. Well-developed patient, in mild distress. HEAD: Atraumatic. Normocephalic. EYES: Pupils equal round and reactive. Extraocular motions intact. No scleral icterus. No injection or drainage. ENT: Nose without bleeding, purulent drainage. Throat without erythema, tonsillar hypertrophy or exudate. Airway patent. NECK: Trachea midline. Non tender CARDIOVASCULAR: Regular rate and rhythm without murmurs, gallops, or rubs. RESPIRATORY: Clear to auscultation. Breath sounds equal bilaterally. No wheezes, rales, or rhonchi. GASTROINTESTINAL: Abdomen soft, non-tender, LLQ TTP but no r/r/g EXTREMITIES: No edema or joint tenderness. BACK: Nontender without deformity or crepitance. No flank tenderness. NEURO: AOx3. SKIN: No rash or erythema of visible areas Initial Vital Signs Initial Vital Signs: Vital Signs Temperature 97.7 F 04/04/25 21:07 Pulse Rate 66 04/04/25 21:07 Respiratory Rate 18 04/04/25 21:07 Blood Pressure 115/61 04/04/25 21:07 Pulse Oximetry 100 04/04/25 21:07 Oxygen Delivery Method Room Air 04/04/25 21:07 Course Orders Ordered: ED Orders 04/04/25 21:05 Complete Blood Count AUTO DIFF Stat Comprehensive Metabolic Panel Stat Lipase Stat 04/04/25 21:38 EKG-12 Lead Stat 04/04/25 21:50 Magnesium Stat 04/04/25 23:16 CT abdomen pelvis w con Stat POTASSIUM CHLORIDE IN WATER (Potassium Cl 10 Meq/100 Ml Shelbi) 10 meq in 100 mls @ 100 mls/hr IV Q1H [facility] Stop: 04/05/25 01:59 Last Admin: 04/05/25 00:06 Dose: 100 mls/hr Documented By: Infusion: 04/05/25 00:06 Dose: Infused Documented By: Infusion: 04/04/25 23:42 Dose: 100 mls/hr Documented By: Infusion: 04/04/25 23:26 Dose: 0 mls/hr Documented By: Admin: 04/04/25 23:11 Dose: 100 mls/hr Documented By: Infusion: 04/04/25 23:11 Dose: Infused Documented By: Admin: 04/04/25 22:16 Dose: 100 mls/hr Documented By: JAYNE Ondansetron HCl (Ondansetron 4 Mg/2 Ml Inj) 4 mg IV NOW PRN PRN Reason: Nausea And Vomiting Ondansetron HCl (Ondansetron 4 Mg Odt) 4 mg PO NOW PRN PRN Reason: Nausea And Vomiting Discontinued Medications Potassium Chloride (Potassium Chloride 20 Meq Tab) 40 meq PO NOW ONE Stop: 04/04/25 21:56 Last Admin: 04/04/25 22:15 Dose: 40 meq Documented By: JAYNE Vital Signs Vital signs: Vital Signs - 8 hr 04/04/25 21:07 04/04/25 22:14 04/04/25 22:16 Temperature 97.7 F Pulse Rate 66 48 L 54 L Respiratory Rate 18 8 L 19 Blood Pressure 115/61 Pulse Oximetry 100 84 L 99 Oxygen Delivery Method Room Air 04/04/25 22:16 04/04/25 22:30 04/04/25 22:30 Temperature Pulse Rate Respiratory Rate Blood Pressure 106/73 108/70 108/70 Pulse Oximetry Oxygen Delivery Method 04/04/25 22:30 04/04/25 22:30 04/04/25 22:30 Temperature Pulse Rate Respiratory Rate Blood Pressure 108/70 108/70 108/70 Pulse Oximetry Oxygen Delivery Method 04/04/25 22:30 04/04/25 23:00 04/04/25 23:00 Temperature Pulse Rate 48 L 44 L Respiratory Rate 32 H 30 H Blood Pressure 111/70 Pulse Oximetry Oxygen Delivery Method MDM - Abdominal Pain Lab Data 04/04/25 21:05 04/04/25 21:05 Labs: Lab Results 04/04/25 04/04/25 Range/Units 21:05 21:50 WBC 11.5 H (4.5-11.0) X10^3/uL RBC 5.38 (4.5-5.9) X10^6/uL Hgb 16.1 (13.5-17.5) g/dL Hct 46.7 (41-53) % MCV 86.8 (80-100) fL MCH 29.9 (26-34) PG MCHC 34.5 (30-36) % RDW 13.0 (11.6-14.8) % Plt Count 242 (150-400) X10^3/uL Neut % (Auto) 44.4 L (50-75) % Lymph % (Auto) 45.0 H (25-40) % [place] % (Auto) 8.4 (3-14) % Eos % (Auto) 1.7 L (2-4) % Baso % (Auto) 0.5 (0-2) % Neut # (Auto) 5100 (0458-3294) /uL Lymph # (Auto) 5200 H (5374-3909) /uL [place] # (Auto) 1000 H (0-900) /uL Eos # (Auto) 200 (0-450) /uL Baso # (Auto) 100 (0-100) /uL Sodium 139 (137-145) mmol/L Potassium 2.7 L* (3.4-5.1) mmol/L Chloride 100 (98-107) mmol/L Carbon Dioxide 25 (22-32) mmol/L BUN 10 (9-20) mg/dL Creatinine 0.94 (0.66-1.25) mg/dL Estimated GFR > 60 (>60) mL/min BUN/Creatinine Ratio 10.6 (6-22) Glucose 102 H (70-99) mg/dL Calcium 9.2 (8.4-10.2) mg/dL Magnesium 2.0 (1.6-2.3) mg/dL Total Bilirubin 0.9 (0.2-1.3) mg/dL AST 33 (17-59) IU/L ALT 29 (<50) IU/L Alkaline Phosphatase 43 (38-126) U/L Total Protein 7.6 (6.3-8.2) g/dL Albumin 5.2 H (3.5-5.0) g/dL Globulin 2.4 (1.7-4.1) g/dL Albumin/Globulin Ratio 2.2 (1.0-2.8) Lipase 484 H (23-300) U/L Point of care testing: Urine Dip Bedside Urine Glucose Negative Bedside Urine Bilirubin - Negative Bedside Urine Ketone - Negative Urine Specific [place] 1.005 Bedside Urine Occult Blood - Negative Bedside Urine pH 6.5 Bedside Urine Protein - Negative Bedside Urine Urobilinogen - Negative Bedside Urine Nitrite - Negative Bedside Urine Leukocytes - Negative Esterase Imaging Data CT scan - abdomen/pelvis: Radiologist's Impression: [address] [address] [address] Scan Report Signed Patient: Anatoly Yadav MR#: [id number] : 1995 Acct:[id number] Age/Sex: 29 / M Date of Service: 04/04/25 Loc: ED Accession Number: [id number] Procedure: CT abdomen pelvis w con Ordering Provider: Yves Courtney D.O. PROCEDURE: CT ABDOMEN PELVIS W CON INDICATIONS: abd pain/nausea/ intussusception TECHNIQUE: After the administration of intravenous contrast, axial sections acquired from the lung bases to the pubic symphysis. Coronal and sagittal reformats were performed. For radiation dose reduction, the following was used: automated exposure control, adjustment of mA and/or kV according to patient size. COMPARISON: [facility], CT, CT ABDOMEN PELVIS W CON, 02/25/2024, 14:46. FINDINGS: Image quality: Diagnostic, although evaluation is limited due to the paucity of intra-abdominal fat. Peritoneum: No pneumoperitoneum or ascites. Bones: No acute osseous abnormality. Lower Chest: No acute abnormality. Liver: Normal in size and contour. Gallbladder: No stones or pericholecystic fluid. Biliary tree: No intrahepatic or extrahepatic biliary ductal dilatation. Pancreas: Within normal limits. Spleen: Normal in size and contour. Kidneys: No hydronephrosis or obstructive urolithiasis. Adrenals: No adrenal nodularity. Bladder: Normal in size and wall thickness. : Small hydroceles. Stomach: Normal in size and contour. Hyperdense material in the proximal stomach (01/24). Bowel: Scattered colonic diverticulosis. Fluid in the colon. No bowel obstruction. Interval resolution of the ileo-ileal intussusception. Appendix within normal limits (02/25). Lymph Nodes: No retroperitoneal, mesenteric, or inguinal lymphadenopathy. Vascular: No abdominal aortic aneurysm. The visualized arterial vasculature is patent. 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 IMPRESSION: 1. Hyperdense material in the stomach. Unless there is a history of recently ingested material or oral contrast, consider the possibility of underlying gastritis/peptic ulcer disease. 2. Fluid in the colon, which can be seen in the setting of diarrhea. 3. Interval resolution of prior ileo-ileal intussusception. 4. No other acute CT abnormality of the abdomen/pelvis. MDM Narrative Medical decision making narrative: All lab work, vital signs, nurse triage note, medication list, and previous ER visits and imaging studies all reviewed. CT scan showed interval resolution of prior ileal intussusception fluid in the colon which can be related to diarrhea and also hyperdense material in the stomach underlying gastric and peptic ulcer disease. Patient was given GI cocktail and Protonix here. Patient will be sent home on Bentyl prescription. Patient has a follow up appointment with GI MD next Friday. Differential diagnosis includes small-bowel obstruction, intussusception, volvulus, diverticulitis, pancreatitis, constipation, and peptic ulcer disease Discharge Plan Departure Patient Disposition: Home Clinical Impression: Hypokalemia Gastritis Qualifiers: Gastritis type: unspecified gastritis Chronicity: acute Gastritis bleeding: without bleeding Qualified Code(s): K29.00 - Acute gastritis without bleeding Instructions: DI for Gastritis Activity Restrictions/Additional Instructions: Return with new or worsening symptoms. Take your medicines as directed. Follow up with GI appointment next Friday. Prescriptions: New potassium chloride 20 mEq tablet extended release 20 meq PO BID Qty: 8 0RF dicyclomine 20 mg tablet 20 mg PO TID Qty: 30 0RF No Action dicyclomine 20 mg tablet 20 mg PO QID Qty: 60 0RF Referrals: Miscellaneous,Doctor, MD [Primary Care Provider] - Stand Alone Forms: Patient Portal/API/Survey
[2025-04-04 23:30] VITALS: BP 115/79; PULSE 44; RESP 18; O2SAT 100
[2025-04-05] VITALS: BP 112/73; PULSE 45; RESP 18; O2SAT 100
[2025-04-05] MEDS: POTASSIUM CHLORIDE IN WATER 10 MEQ/100 ML PIGGYBACK 100 MEQ IV (00:06)
[2025-04-05 00:30] VITALS: BP 118/73; PULSE 47; RESP 16; O2SAT 100
[2025-04-05 01:00] VITALS: BP 114/75; PULSE 55; RESP 22; O2SAT 100
[2025-04-05] MEDS: MAG HYDROX/ALUMINUM/SIMETH SUS 20 ML, LIDOCAINE VISCOUS 2% 15 ML PO (01:00)
[2025-04-05] MEDS: PANTOPRAZOLE 40 MG VIAL IV (01:00)
== END 2025-04-05 01:13 | disposition home or self-care (01) ==
PROVIDERS: Emergency Provider Family Medicine
DX: K29.00 Acute gastritis without bleeding (principal); E87.6 Hypokalemia; Z87.19 Personal history of other diseases of the digestive system
CPT/HCPCS: 74177; 80053; 81003; 83690; 83735; 85025; 93005; 93010; 96365; 96366; 96375; 99284; J2470; Q9967